=== PATIENT | male | born 1970 | race Caucasian/White ===

== ENCOUNTER 2017-12-07 18:04 | Emergency (ER) | payer BC, SELFPAY ==
[2017-12-07 18:08] VITALS: BP 121/91; PULSE 88; RESP 14; TEMP 37.2; O2SAT 99
--- NOTE | 2017-12-07 18:09 | DI.RAD_ITS ---
SYMPTOMS/DIAGNOSIS: LEFT PINKY FX VERSUS DISLOCATION LEFT HAND: Two views were performed. There is posterior dislocation of the distal phalanx with respect to the middle phalanx. There is some overlap of the 4th and 5th fingers. No definite fracture is seen. IMPRESSION: Posterior dislocation at the distal interphalangeal joint of the little finger.
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
--- NOTE | 2017-12-07 18:33 | DI.VRAD_ITS ---
EXAM: XR Left Hand, 1 or 2 Views EXAM DATE/TIME: 12/07/2017 6:10 PM CLINICAL HISTORY: 47 years old, male; Injury or trauma; Fall; Initial encounter; Blunt trauma (contusions or hematomas; Finger; Left; Little finger TECHNIQUE: XR Left hand 1 or 2 views. COMPARISON: No relevant prior studies available. FINDINGS: Bones/joints: Dorsal dislocation of the distal phalanx of the little finger with respect to the middle phalanx. Soft tissues: Normal. IMPRESSION: Dorsal dislocation of the distal phalanx of the little finger with respect to the middle phalanx. Dictated and Authenticated by: Anne-Marie Berkowitz MD. Ordering:CANDACE PERKINS MD
== END 2017-12-07 18:51 | disposition home or self-care (01) ==
LOC: ER 12-08 10:14
PROVIDERS: Emergency Provider Student in an Organized Health Care Education/Training Program
DX: S63.297A Dislocation of distal interphalangeal joint of left little finger, initial encounter (principal); W22.8XXA Striking against or struck by other objects, initial encounter; Y93.55 Activity, bike riding
CPT/HCPCS: 26770; 73120